=== PATIENT | female | born 2000 | race African-American/Black ===

== ENCOUNTER 2021-10-13 11:00 | Emergency (ER) | payer OTHER ==
[~2021-10-13] VITALS: Ht 165.1 cm; Wt 59.0 kg
[2021-10-13] MEDS ORDERED: CEFD300 PO (12:33)
== END 2021-10-13 12:59 | disposition home or self-care (01) ==
LOC: ER 11:00
DX: J02.9 Acute pharyngitis, unspecified (principal); Z88.0 Allergy status to penicillin
CPT/HCPCS: 87081; 87430; 99283; A9270; J1100